=== PATIENT | male | born 1980 | race Caucasian/White ===

== ENCOUNTER → 2017-06-26 | Outpatient (CLI) | payer OTHER ==
[~2017-06-26] MED LIST: ATORVASTATIN CA20 M1 PO; CEFDINIR300 M1 PO; MELOXICAM15 MG PO; PROMETHAZINE D118 ML PO; SERTRALINE 100100 MG PO; TREXIMET 500 MG1 TAB PO; ZITHROMAX Z PA250 MG PO
== END ==
LOC: RT 16:32
DX: J34.2 Deviated nasal septum (principal); J32.0 Chronic maxillary sinusitis; Z01.818 Encounter for other preprocedural examination

== ENCOUNTER 2017-06-28 07:17 | Day surgery (SDC) | payer OTHER ==
[~2017-06-28] VITALS: Ht 182.9 cm; Wt 105.7 kg
--- NOTE | 2017-06-28 09:39 | Anesthesia Record ---
Anesthesia Record Part II Discharge time: 1005 Destination: Same day surgery PACU nurse assessment review? Yes Patient is: Awake, Stable Anesthesia complications? No at 0977
--- NOTE | 2017-06-28 09:39 | Anesthesia Record ---
Anesthesia Record Part I Total IV fluids: 1400 EBL (ml): 25 Urine Output: 0 B/P: 148/92 % SaO2: 100 Pulse: 81 Resps: 12 Temp: 97.6 Patient is: Awake, Stable Stable to PACU at: 0935 at 0939
--- NOTE | 2017-06-28 12:56 | Operative Note ---
Other ENT Procedure Date of Procedure: 06/28/17 Time of Procedure: 0845 Procedure performed: 1. Nasal Septoplasty 2. FESS -right intanasal maxillary antrostomy with removal of tissue 3. FESS-toal right ethmoidectomy 4. FESS- total left ethmoidectomy 5. Multiple left nasal polypectomy Pre-op diagnosis: 1. Deviated nasal septum with 90% nasal airflow blockage 2. Chronic right maxillary sinusitis 3. Chronic right ethmoid sinusitis 4. Chronic left ethmoid sinusitis 5. multiple left nasal polyps Post-op diagnosis: same Surgeon: Brent Morales Anesthesia: general Pre-procedure antibiotics: Ancef 1 gm Pre-procedure steroid: Decadron 12 mg Description of procedure: With the patient under general anesthesia the face was prepped and draped, the eyes were protected with Steri-Strips. The nose was decongested with topical cocaine and 5 mL of 2 percent lidocaine with epi were injected into the nasal antral roberson and septum. A LEFT hemitransfixion incision was made and the mucoperichondrium and mucoperiosteum was elevated from both sides of the nasal septum. The quadrangular cartilage was from maxillary crest and the maxillary crest in quadrangular cartilages were both trimmed inferiorly as well as posteriorly. A vomerine spur was removed. And then the septum was realigned in the midline and held there with transfixion and hemitransfixion chromic sutures. Using endoscopic sinus surgical techniques and instruments a RIGHT intranasal maxillary antrostomy was done and mucosal thickening was removed from the RIGHT maxillary sinus and submitted. The ostiomeatal complex was opened. The RIGHT maxillary sinus was irrigated until all of the returns were clear. Using endoscopic sinus surgical instruments and scopes, a total RIGHT ethmoidectomy was done. Disease tissue was removed and Surgicel Snow was placed in the ethmoid cavity. Using endoscopic sinus surgical techniques and instruments a total LEFT ethmoidectomy was done. All of the diseased tissue was removed and submitted, and then surgicel snow was placed in the LEFT ethmoid. There were multiple posterior LEFT nasal polyps and they were removed using the Wild's forceps. All of that tissue was submitted, bleeding was stopped with bipolar cautery. The nasal cavity was thoroughly irrigated, Cortisporin ointment was placed in the nasal vestibules, a drip pad dressing was applied and the patient was sent to recovery in good general condition. EBL (ml): 1 at 0554
[2017-06-28 15:27] VITALS: BP 136/87
== END 2017-06-28 11:15 | disposition home or self-care (01) ==
LOC: SDC 07:17
PROVIDERS: Otolaryngology
PROC: 09SM4ZZ Reposition Nasal Septum, Percutaneous Endoscopic Approach (ICD-10-PCS; 2017-06-28)
PROC: 09BV8ZZ Excision of Left Ethmoid Sinus, Via Natural or Artificial Opening Endoscopic (ICD-10-PCS; 2017-06-28)
PROC: 09BU8ZZ Excision of Right Ethmoid Sinus, Via Natural or Artificial Opening Endoscopic (ICD-10-PCS; 2017-06-28)
PROC: 099Q8ZZ Drainage of Right Maxillary Sinus, Via Natural or Artificial Opening Endoscopic (ICD-10-PCS; 2017-06-28)
PROC: 09BK8ZX Excision of Nasal Mucosa and Soft Tissue, Via Natural or Artificial Opening Endoscopic, Diagnostic (ICD-10-PCS; principal; 2017-06-28 08:45)
DX: J34.2 Deviated nasal septum (principal); J32.0 Chronic maxillary sinusitis; J32.2 Chronic ethmoidal sinusitis; J33.0 Polyp of nasal cavity
CPT/HCPCS: J2405